=== PATIENT | female | born 1950 | race Two or more races ===

== ENCOUNTER 2020-03-14 10:00 | Inpatient (IN) | payer MEDICARE, OTHER ==
--- NOTE | 2020-03-14 10:59 | PDOC ---
History of Present Illness - General Chief Complaint: Muscle Cramping Stated Complaint: RT ARM/BACK PAIN Time Seen by Provider: 03/14/20 10:43 Past History - Medical History Allergies/Adverse Reactions: Allergies Allergy/AdvReac Type Severity Reaction Status Date / Time No Known Allergies Allergy Verified 03/14/20 10:03 Home Medications: Ambulatory Orders Labetalol HCl [Normodyne -] 200 mg PO ASDIR 03/14/20 COPD: No HTN: Yes - Psycho-Social/Smoking History Smoking History: Never smoked - Substance Abuse Hx (Audit-C & DAST Scrn) How often the patient has a drink containing alcohol: Never Score: In Men: 4 or > Positive; In Women: 3 or > Positive: 0 Screen Result (Pos requires Nsg. Audit-10AR): Negative In the last yr the pt used illegal drug/Rx for NonMed reason: No Score: Yes response is considered Positive: 0 Screen Result (Positive result requires Nsg. DAST-10): Negative *Physical Exam - Vital Signs Last Vital Signs Temp Pulse Resp BP Pulse Ox 98.1 F 69 18 138/78 99 03/14/20 10:05 03/14/20 10:05 03/14/20 10:05 03/14/20 10:05 03/14/20 10:05 ED Treatment Course - LABORATORY CBC & Chemistry Diagram: 03/15/20 05:50 03/15/20 05:50 - RADIOLOGY Radiology Studies Ordered: Category Date Time Status CHEST X-RAY PORTABLE* [RAD] Stat Radiology 03/14/20 10:56 Ordered Medical Decision Making - Medical Decision Making 03/14/20 10:57 HPI: 70yo F hx HTN c/o 3weeks b/l arm cramping and tingling, constant, worse when lies down, nothing makes better, no associated sx, no trauma or heavy lifting, no weakness. Endorses months intermittent stabbing chest pain substernal nonradiating exertional associated with fatigue when walking, last chest pain 1wk ago. From [facility] 2 days ago Endorses chronic back pain, unchanged, no recent trauma ROS: Constitutional: Positive for exertional fatigue. Negative for chills, fever, diaphoresis. HENT: Negative for sore throat, rhinorrhea, congestion. Eyes: Negative for visual disturbance. Respiratory: Negative for shortness of breath, cough, and wheezing. Cardiovascular: Positive for chest pain. Negative for palpitations, and leg swelling. Gastrointestinal: Negative for abdominal pain, blood in stool, constipation, diarrhea, nausea, and vomiting. Genitourinary: Negative for dysuria, flank pain, and hematuria. Musculoskeletal: Positive for b/l arm cramping, chronic back pain. Negative for myalgias, and neck pain. Skin: Negative for rash. Neurological: Positive for tingling b/l arms. Negative for light-headedness, dizziness, vertigo, syncope, weakness, numbness and headaches. Psychiatric/Behavioral: Negative for behavioral problems and confusion. PE: Gen: Alert, NAD, comfortable-appearing. HEENT: PERRL, EOMI, MMM, NCAT. No conjunctival pallor. Sclera are non-icteric. Oropharynx is clear. CV: Regular rate and rhythm. No murmurs, rubs, or gallops. PULM: No resp distress. CTAB, no wheezes, rales, or rhonchi. ABD: soft, NT/ND, no rebound tenderness or guarding, no CVA tenderness. BACK: No TTP of c/t/l-spine. No step-offs or deformities. MSK: No bony deformities. 2+ pulses in all extremities. NEURO: AAOx3. PERRL. CN 2-12 intact. 5/5 strength in all extremities. Sensation to light touch intact in all extremities. No pronator drift. No dysmetria. No dysdiadochokinesia. No abnormal nystagmus. No skew deviation. Normal gait. EXTREMITIES: No cyanosis. No clubbing. No edema. No calf tenderness. UEs: no TTP along long bones, full AROM, no soft tissue or fei abnormalities. PSYCH: Normal mood and thought pattern. SKIN: Warm and dry. Normal capillary refill. No rashes. No jaundice. MDM: 70yo F hx HTN with 3weeks b/l arm cramping and tingling. Hemodynamically stable, afebrile, neurologically intact. Ddx: metabolic derangement, MSK, ACS/NJ, arrhythmia, CHF, PNA, thyroid p athology, infection, metabolic derangement, anemia -EKG -CXR -CBC,CMP,Mg,Phos,Cardiac profile,BNP,Lipase,TSH,UA/UC -Aspirin -Dispo: pending workup and reassessment, likely d/c home EKG reviewed: normal sinus rhythm, 64bpm, normal axis, normal intervals, no e/o acute ischemia CXR reviewed: No acute pathology Labs reviewed. Notable for UTI -Ceftriaxone, f/u culture -Admit for UTI, and r/o ACS Admitted to Dr Stephens Discharge - Discharge Information Problems reviewed: Yes Clinical Impression/Diagnosis: UTI (urinary tract infection) Chest pain Qualifiers: Chest pain type: other chest pain Qualified Code(s): R07.89 - Other chest pain Condition: Stable - Admission Yes - Follow up/Referral - Patient Discharge Instructions - Post Discharge Activity
[2020-03-14 11:26] LABS: BASO % 0.5 % (0-2.0); EOS % 3.2 % (0-4.5); HEMATOCRIT 38.8 % (32.4-45.2); HEMOGLOBIN 12.5 GM/dL (10.7-15.3); LYMPH % 22.1 % (8-40); MCH 29.8 pg (25.7-33.7); MCHC 32.2 g/dl (32.0-36.0); MEAN CELL VOLUME 92.4 fl (80-96); MEAN PLT VOLUME 10.8 fl (7.5-11.1); MONO % 9.8 % (3.8-10.2); NEUT % 64.4 % (42.8-82.8); PLATELET COUNT 154 K/MM3 (134-434); RDW 15.3 % (11.6-15.6); WHITE BLOOD COUNT 6.1 K/mm3 (4.0-10.0)
[2020-03-14 11:33] LABS: PROTHROMBIN TIME (PATIENT) 11.8 SEC (9.7-13.0)
--- NOTE | 2020-03-14 11:33 | PDOC ---
Documentation entered by Dora Pena SCRIBE, acting as scribe for Erendira Loo MD. Erendira Loo MD: This documentation has been prepared by the Jean gibson Brenda, SCRIBE, under my direction and personally reviewed by me in its entirety. I confirm that the documentation accurately reflects all work, treatment, procedures, and medical decision making performed by me. Attending Attestation - Resident Resident Name: [email or web address] - ED Attending Attestation I have performed the following: I have examined & evaluated the patient, The case was reviewed & discussed with the resident, I agree w/resident's findings & plan, Exceptions are as noted - HPI HPI: 03/14/20 11:36 70yo F hx HTN c/o 3weeks b/l arm cramping and tingling, worse in right arm Endorses months intermittent stabbing chest pain substernal nonradiating exertional associated with fatigue when walking From [facility] 2 days ago Endorses chronic back pain, no trauma also has generalized weakness 03/14/20 12:44 03/14/20 15:39 - Physicial Exam PE: 03/14/20 11:36 Agree with the resident's HPI and PE as documented in the electronic medical record. NAD, well appearing, EOMI, PERRL, nl conjunctiva, anicteric; neck supple. lungs clear, RRR, no murmur, abdomen soft nontender. no rebound, guarding. Back nontender. RASMUSSEN x4, no focal neuro deficits. No peripheral edema. normal color for ethnicity, WWP. 5/5 group director and prox/distal strength in all extremities SILT speech clear. obese abdomen 03/14/20 12:44 03/14/20 12:45 - Medical Decision Making 03/14/20 11:36 Vital Signs Temp Pulse Resp BP Pulse Ox 98.1 F 69 18 138/78 99 03/14/20 10:05 03/14/20 10:05 03/14/20 10:05 03/14/20 10:05 03/14/20 10:05 DDx chest pain: ACS, coronary vasospasm, NSTEMI, arrhythmia, unstable angina, PE, dissection, PUD, esophageal spasm, GERD, gastritis, costochondritis, pneumonia, pleurisy, pericarditis/myocarditis. dehydration, electrolyte/metabolic derangements. Considered but clinically doubt based on HPI and PE: Low suspicion for pulmonary embolism or dissection. vitals wnl. reassuring Interpreted by ED Physician: CXR: no acute abnormality: no infiltrates, bones appear intact and structures normal alignment, cardiac silhouette within normal limits. no free air under diaphragm, no pneumothorax. EKG normal sinus rhythm, no interval abnormalities, narrow QRS, ST and T wave segments and morphology normal. Nonspecific T wave abnormalities, Chest pain HEART score 4 which denotes Moderate risk and probability for ACS, risk of 14-16% of MACE at 4-6 wks Given risk factors including comorbidities, gender labs and lytes wnl neg trop x1 reassuring UA with UTI. treat with ceftriaxone, f/u culture. admitting to Dr Stephens Plan for admit UTI/chest pain, r/o ACS given her chest pain, to r/o ischemia, serial trops and EKG/tele monitoring. ASA administered, pain controlled, discussion with patient and family at bedside, made aware of impression and plan, questions answered. 03/14/20 12:44 03/14/20 12:48 03/14/20 15:39 Heart Score/ECG Review - History History: Slightly suspicious - Electrocardiogram EKG: Non specific repolarization disturbance - Age Age: >/= 65 - Risk Factors Risk Factors Heart Score: Yes Hx Hypertension, Yes Hx Obesity Based on the list above the patient has:: 1-2 risk factors - Troponin Troponin: </= normal limit - Score Heart Score - Total: 4 #1 ECG reviewed & interpreted by me at: 10:40 General ECG Interpretation: Sinus Rhythm, Normal Rate, Normal Intervals 03/14/20 11:32 EKG normal sinus rhythm 64 bpm, no interval abnormalities, narrow QRS, ST and T wave segments and morphology normal. Nonspecific T wave abnormalities in precordial leads, TWI in III, AVF Discharge - Discharge Information Problems reviewed: Yes Clinical Impression/Diagnosis: Chest pain, UTI (urinary tract infection) Condition: Stable - Admission Yes - Follow up/Referral - Patient Discharge Instructions - Post Discharge Activity
[2020-03-14 11:35] LABS: ACTIVATED PTT 29.5 SECONDS (25.2-36.5)
[2020-03-14 12:01] LABS: ALBUMIN 3.5 g/dl (3.4-5.0); ALK PHOS 69 U/L (45-117); ANION GAP 4 MMOL/L (8-16); BILIRUBIN,TOTAL 0.3 mg/dL (0.2-1); BLOOD UREA NITROGEN 15.3 mg/dL (7-18); CALCIUM 9.3 mg/dL (8.5-10.1); CHLORIDE 110 mmol/L (98-107); CO2 31 mmol/L (21-32); CREATININE 0.9 mg/dL (0.55-1.3); GLUCOSE,RANDOM 85 mg/dL (74-106); LIPASE 149 U/L (73-393); MAGNESIUM 2.2 mg/dL (1.8-2.4); N-TERMINAL BNP 179.2 pg/ml (5-125); PHOSPHOROUS 3.1 mg/dL (2.5-4.9); POTASSIUM 4.3 mmol/L (3.5-5.1); SGOT/AST 12 U/L (15-37); SGPT/ALT 21 U/L (13-61); SODIUM 144 mmol/L (136-145)
[2020-03-14 12:19] LABS: EPI CELLS 17 /uL (0-25.1); HYALINE CASTS 1 /uL (0-3.1); PH,URINE 5.5 (5.0-8.0); URINE APPEARANCE CLOUDY; URINE BACTERIA >9,000 /uL (0-1359); URINE BILIRUBIN NEGATIVE (NEGATIVE); URINE COLOR YELLOW; URINE GLUCOSE (UA) NEGATIVE (NEGATIVE); URINE KETONE NEGATIVE (NEGATIVE); URINE LEUK ESTERASE NEGATIVE (NEGATIVE); URINE NITRITE POSITIVE (NEGATIVE); URINE PROTEIN NEGATIVE (NEGATIVE); URINE RBC 4 /uL (0-23.9); URINE UROBILINOGEN 0.2 mg/dL (0.2-1.0); URINE WBC 21 /uL (0-25.8)
[2020-03-14] MEDS ORDERED: ASPIRIN 81 MG CHEWABLE TABLETS PO ONE (12:45)
[2020-03-14] MEDS ORDERED: CEFTRIAXONE 1 GM in DEXTROSE 5%-WATER - 100 ML IVPB ONE (12:45)
[2020-03-14] MEDS ORDERED: SODIUM CHLORIDE 0.9% 500 ML INFUS.BAG IV ONE (12:48)
[2020-03-14] MEDS ORDERED: ASPIRIN 81 MG CHEWABLE TABLETS ONE (12:56)
[2020-03-14] MEDS ORDERED: CEFTRIAXONE 1 GM/50 ML BAG ONE (12:56)
--- NOTE | 2020-03-14 14:06 | HP ---
CHIEF COMPLAINT: PCP: none HISTORY OF PRESENT ILLNESS: 70 y.o female with htn (but pt reports non compliant with meds), obesity presents with wekks and months of back pain, arm paresthesias, leg pain and chest pain. Daughter reports the pain being worse this am bringing her to the ED for further eval. She also just returned from [facility] 2 days ago -- goes back and forth to her home in [place] [facility] [facility] yearly. Pt denies any pleuritic pain, no sob, no nausea or vomiting ER course was notable for: (1) body pain (2)hypertension (3) Recent Travel: yes returned from [facility] [facility] 2 days ago PAST MEDICAL HISTORY: as above PAST SURGICAL HISTORY: denies Social History: Smoking: denies Alcohol: denies Drugs: denies Allergies No Known Allergies Allergy (Verified 03/14/20 10:03) HOME MEDICATIONS: Home Medications Medication Instructions Recorded Labetalol HCl [Normodyne -] 200 mg PO ASDIR 03/14/20 REVIEW OF SYSTEMS CONSTITUTIONAL: Absent: fever, chills, diaphoresis, generalized weakness, malaise, loss of appetite, weight change generalized body pain/aches, back pain, neck pain HEENT: Absent: rhinorrhea, nasal congestion, throat pain, throat swelling, difficulty swallowing, mouth swelling, ear pain, eye pain, visual changes CARDIOVASCULAR: pos chest pain, syncope, palpitations, irregular heart rate, lightheadedness, peripheral edema RESPIRATORY: Absent: cough, shortness of breath, dyspnea with exertion, orthopnea, wheezing, stridor, hemoptysis GASTROINTESTINAL: Absent: abdominal pain, abdominal distension, nausea, vomiting, diarrhea, constipation, melena, hematochezia GENITOURINARY: Absent: dysuria, frequency, urgency, hesitancy, hematuria, flank pain, genital pain MUSCULOSKELETAL: Absent: myalgia, arthralgia, joint swelling, back pain, neck pain SKIN: Absent: rash, itching, pallor HEMATOLOGIC/IMMUNOLOGIC: Absent: easy bleeding, easy bruising, lymphadenopathy, frequent infections ENDOCRINE: Absent: unexplained weight gain, unexplained weight loss, heat intolerance, cold intolerance NEUROLOGIC: Absent: headache, focal weakness or paresthesias, dizziness, unsteady gait, seizure, mental status changes, bladder or bowel incontinence PSYCHIATRIC: Absent: anxiety, depression, suicidal or homicidal ideation, hallucinations. PHYSICAL EXAMINATION Vital Signs - 24 hr 03/14/20 03/14/20 03/14/20 10:05 13:05 13:14 Temperature 98.1 F Pulse Rate 69 Pulse Rate [ 64 Apical] Respiratory 18 20 Rate Blood Pressure 138/78 Blood Pressure 173/85 H [Right Arm] O2 Sat by Pulse 99 100 99 Oximetry (%) GENERAL: Awake, alert, and fully oriented, in no acute distress. HEAD: Normal with no signs of trauma. EYES: extraocular movements intact, sclera anicteric, conjunctiva clear. No lid lag. EARS, NOSE, THROAT: Ears normal, nares patent, oropharynx clear without exudates. Moist mucous membranes. NECK: Normal range of motion, supple LUNGS: Breath sounds equal, clear to auscultation bilaterally. No wheezes, and no crackles. No accessory muscle use. HEART: Regular rate and rhythm, normal S1 and S2 without murmur, rub or gallop. ABDOMEN: Soft, nontender, not distended, normoactive bowel sounds, no guarding, no rebound, no masses. No hepatomegaly or splenomegaly. obese BACK: pos thoracic back tenderness MUSCULOSKELETAL: Normal range of motion at all joints. No bony deformities or tenderness. No CVA tenderness. UPPER EXTREMITIES: 2+ pulses, warm, well-perfused. No cyanosis. No clubbing. No peripheral edema. LOWER EXTREMITIES: 2+ pulses, warm, well-perfused. No calf tenderness. No peripheral edema. NEUROLOGICAL: Cranial nerves II-XII intact. Normal speech. Normal gait. PSYCHIATRIC: Cooperative. Good eye contact. Appropriate mood and affect. SKIN: Warm, dry, normal turgor, no rashes or lesions noted, normal capillary refill. Laboratory Results - last 24 hr 03/14/20 03/14/20 03/14/20 11:00 11:00 11:00 WBC 6.1 RBC 4.20 Hgb 12.5 Hct 38.8 MCV 92.4 MCH 29.8 MCHC 32.2 RDW 15.3 Plt Count 154 MPV 10.8 Absolute Neuts (auto) 3.9 Neutrophils % 64.4 Lymphocytes % 22.1 Monocytes % 9.8 Eosinophils % 3.2 Basophils % 0.5 Nucleated RBC % 0 PT with INR 11.80 INR 1.00 PTT (Actin FS) 29.5 Sodium 144 Potassium 4.3 Chloride 110 H Carbon Dioxide 31 Anion Gap 4 L BUN 15.3 Creatinine 0.9 Est GFR (CKD-EPI)AfAm 75.08 Est GFR (CKD-EPI)NonAf 64.78 Random Glucose 85 Calcium 9.3 Phosphorus 3.1 Magnesium 2.2 Total Bilirubin 0.3 AST 12 L ALT 21 Alkaline Phosphatase 69 Creatine Kinase 168 Creatine Kinase Index 0.6 CK-MB (CK-2) 1.1 Troponin I < 0.02 B-Natriuretic Peptide 179.2 H Total Protein 7.0 Albumin 3.5 Lipase 149 TSH 1.25 Urine Color Urine Appearance Urine pH Ur Specific Cerulean Urine Protein Urine Glucose (UA) Urine Ketones Urine Blood Urine Nitrite Urine Bilirubin Urine Urobilinogen Ur Leukocyte Esterase Urine WBC (Auto) Urine RBC (Auto) Urine Casts (Auto) U Epithel Cells (Auto) Urine Bacteria (Auto) 03/14/20 11:40 WBC RBC Hgb Hct MCV MCH MCHC RDW Plt Count MPV Absolute Neuts (auto) Neutrophils % Lymphocytes % Monocytes % Eosinophils % Basophils % Nucleated RBC % PT with INR INR PTT (Actin FS) Sodium Potassium Chloride Carbon Dioxide Anion Gap BUN Creatinine Est GFR (CKD-EPI)AfAm Est GFR (CKD-EPI)NonAf Random Glucose Calcium Phosphorus Magnesium Total Bilirubin AST ALT Alkaline Phosphatase Creatine Kinase Creatine Kinase Index CK-MB (CK-2) Troponin I B-Natriuretic Peptide Total Protein Albumin Lipase TSH Urine Color Yellow Urine Appearance Cloudy Urine pH 5.5 Ur Specific Cerulean 1.021 Urine Protein Negative Urine Glucose (UA) Negative Urine Ketones Negative Urine Blood Negative Urine Nitrite Positive H Urine Bilirubin Negative Urine Urobilinogen 0.2 Ur Leukocyte Esterase Negative Urine WBC (Auto) 21 Urine RBC (Auto) 4 Urine Casts (Auto) 1 U Epithel Cells (Auto) 17 Urine Bacteria (Auto) >9,000 ekg: unable to locate in the ed, nsr per ed physician cxr: per my interpretation : left costraphrenic angle blunting, no infiltrates noted ASSESSMENT/PLAN: 70 y/o female with the above med hx admitted with chest pain, body pain *chest and body aches -- ? viral infection covid being rule out, recent travel admit to tele rule out acs with enzymes first set neg cardio eval check magnesium, b12, hba1c moving all extremities, arthritic pain? *uti - cont rocephin daily urine culture pending *htn - increased labetalol to twice daily and added acr inh for better bp control *dvt prophy - sq heparin Family Medical History Family History: Denies Visit type - Medication Review Med list reviewed for High Risk Meds patients 65 and older: Yes - Emergency Visit Emergency Visit: Yes ED Registration Date: 03/14/20 Care time: The patient presented to the Emergency Department on the above date and was hospitalized for further evaluation of their emergent condition. - New Patient This patient is new to me today: Yes Date on this admission: 03/14/20 - Critical Care Critical Care patient: No
[2020-03-14] MEDS ORDERED: ACETAMINOPHEN 325 MG TABLET (FP) PO PRN (14:50)
--- NOTE | 2020-03-14 16:58 | CON.CARD ---
Consult Consult Specialty:: Cardiology Referred by:: Hospitalist Medicine Reason for Consultation:: Chest pain, HTN - History of Present Illness Chief Complaint: Chest pain History of Present Illness: 70yo F hx HTN noncompliant with meds, presents for 3 weeks of right arm cramping, hand weakness, months of intermittent stabbing chest pain substernal nonradiating non-exertional, chronic [place] [facility], denies n ear or true syncope, palpitations, orthopnea, PND or LE edema. - History Source History Provided By: Patient Limitations to Obtaining History: No Limitations - Past Medical History Cardio/Vascular: Yes: HTN - Smoking History Smoking history: Never smoked Home Medications - Allergies Allergies/Adverse Reactions: Allergies Allergy/AdvReac Type Severity Reaction Status Date / Time No Known Allergies Allergy Verified 03/14/20 10:03 - Home Medications Home Medications: Ambulatory Orders Labetalol HCl [Normodyne -] 200 mg PO ASDIR 03/14/20 Review of Systems - Review of Systems Cardiovascular: reports: Chest Pain Respiratory: reports: SOB on Exertion Neurological: reports: Weakness Vital Signs: Vital Signs Temperature 98.1 F 03/14/20 10:05 Pulse Rate 61 03/14/20 15:45 Respiratory Rate 20 03/14/20 15:45 Blood Pressure 159/86 03/14/20 15:45 O2 Sat by Pulse Oximetry (%) 97 03/14/20 15:45 Constitutional: Yes: No Distress, Calm Neck: Yes: Supple Respiratory: Yes: Regular, CTA Bilaterally Gastrointestinal: Yes: Normal Bowel Sounds, Soft, Abdomen, Obese Cardiovascular: Yes: Regular Rate and Rhythm JVD: No Carotid Bruit: No Heart Sounds: Yes: S1, S2 Edema: No Neurological: Yes: 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) - Other Data Labs, Other Data: CBC, BMP 03/14/20 11:00 03/14/20 11:00 INR, PTT INR 1.00 (0.83-1.09) 03/14/20 11:00 Troponin, BNP 03/14/20 11:00 Troponin I < 0.02 B-Natriuretic Peptide 179.2 H Troponin, BNP 03/14/20 11:00 Troponin I < 0.02 B-Natriuretic Peptide 179.2 H NSR @ 64 LVH with repol abnl Ejection Fraction %: LVEF > or = 40 % Imaging - Results Chest X-ray: Image Reviewed (NAD, no effusion) Cat Scan: Pending Problem List - Problems (1) Hypertensive heart disease Code(s): I11.9 - HYPERTENSIVE HEART DISEASE WITHOUT HEART FAILURE Qualifiers: Heart failure presence: without heart failure Qualified Code(s): I11.9 - Hypertensive heart disease without heart failure (2) Dyspnea on exertion Code(s): R06.00 - DYSPNEA, UNSPECIFIED (3) Chest pain Code(s): R07.9 - CHEST PAIN, UNSPECIFIED Qualifiers: Chest pain type: other chest pain Qualified Code(s): R07.89 - Other chest pain; R07.8 - Other chest pain Assessment/Plan 1. Hypertensive heart disease w/o failure 2. Atypical chest pain 3. Chronic DE r/o structural heart disease 4. Right hand weakness r/o CVA vs peripheral neuropathy 5. UTI 6. R/o COVID 19 P:1. Resume labetolol 200 bid and agree with add ASA 81 qd and vasotec 5 qd with uptitration as tolerated 2. Ruling out for ME, consider HCT 3. Further testing including TTE and stress testing may be performed as outpatient 4. Empiric abx pending C&S 5. Thank you for consultative opportunity
[2020-03-14] MEDS: ENALAPRIL MALEATE 5 MG TABLET (FP) PO SCH (17:54)
[2020-03-14 18:17] VITALS: BMI 33.9
[2020-03-14] MEDS: LABETALOL HCL 200 MG TABLET (FP) PO SCH (21:01)
[2020-03-14] MEDS: HEPARIN NA (PORCINE) 5,000 UNITS/ML 1ML VIAL SQ SCH (21:01)
[2020-03-15 06:57] LABS: BASO % 0.7 % (0-2.0); EOS % 4.4 % (0-4.5); HEMATOCRIT 36.8 % (32.4-45.2); LYMPH % 35.8 % (8-40); MCH 29.4 pg (25.7-33.7); MCHC 32.6 g/dl (32.0-36.0); MEAN CELL VOLUME 90.1 fl (80-96); MEAN PLT VOLUME 10.4 fl (7.5-11.1); MONO % 11.6 % (3.8-10.2); NEUT % 47.5 % (42.8-82.8); PLATELET COUNT 144 K/MM3 (134-434); RBC 4.09 M/mm3 (3.60-5.2); RDW 14.5 % (11.6-15.6); WHITE BLOOD COUNT 4.8 K/mm3 (4.0-10.0)
[2020-03-15 07:36] LABS: BLOOD UREA NITROGEN 14.3 mg/dL (7-18); CALCIUM 8.7 mg/dL (8.5-10.1); CREATININE 0.8 mg/dL (0.55-1.3); MAGNESIUM 2.1 mg/dL (1.8-2.4); PHOSPHOROUS 3.3 mg/dL (2.5-4.9); POTASSIUM 3.8 mmol/L (3.5-5.1)
[2020-03-15] MEDS ORDERED: DEXTROSE 5%-WATER - 50 ML IVPB ONE (08:22)
[2020-03-15] MEDS ORDERED: cefTRIAXone SODIUM 1 GM VIAL ONE (08:22)
[2020-03-15] MEDS: ENALAPRIL MALEATE 5 MG TABLET (FP) PO SCH (09:04)
[2020-03-15] MEDS: ASPIRIN COATED 81 MG TABLET.EC PO SCH (09:04)
[2020-03-15] MEDS: CEFTRIAXONE 1 GM in DEXTROSE 5%-WATER - 50 ML IVPB SCH (09:04)
[2020-03-15] MEDS: PANTOPRAZOLE 40 MG TABLET PO SCH (09:04)
[2020-03-15] MEDS: HEPARIN NA (PORCINE) 5,000 UNITS/ML 1ML VIAL SQ SCH ×2 (09:04→21:17)
[2020-03-15] MEDS: LABETALOL HCL 200 MG TABLET (FP) PO SCH ×2 (09:04→21:17)
--- NOTE | 2020-03-15 10:38 | PN ---
Physical Exam: SUBJECTIVE: Patient seen and examined at bedside. She endorses right upper extremity cramping, and resultant weakness ongoing for the past two months. She denies any trauma or inciting features. Cramping begins at upper arm and is diffuse through her arm and her hand. She states over the past two weeks she has had increasing difficulty using utensils (for example- to peel a fruit). Has not has this evaluated by a physician previously. Denies chest pain, palpitations, or shortness of breath today. Denies subjective fevers, chills, abdominal pain, nausea, vomiting, dysuria, hematuria. OBJECTIVE: Vital Signs Period Temp Pulse Resp BP Sys/Bruno Pulse Ox Last 24 Hr 97.6 F-98.8 F 60-74 18-22 140-173/82-99 94-100 GENERAL: The patient is awake, alert, and fully oriented, in no acute distress. HEAD: Normocephalic, atraumatic. EYES: PERRL, extraocular movements intact, sclera anicteric, conjunctiva clear. ENT: Oropharynx clear, without erythema or exudates. Moist mucous membranes. NECK: Trachea midline, full range of motion. Supple without lymphadenopathy. LUNGS: Breath sounds equal, clear to auscultation bilaterally. No wheezes, no crackles. No accessory muscle use. HEART: Regular rate and rhythm. S1, S2 without murmur, rub or gallop. ABDOMEN: Soft, nondistended, nontender to light and deep palpation x4 quadrants. No rebound tenderness, no guarding. Normoactive bowel sounds x4 quadrants. No hepatosplenomegaly, no masses appreciated. EXTREMITIES: 2+ radial, dorsalis pedis pulses bilaterally. Warm, well-perfused. No lower extremity edema bilaterally. NEUROLOGICAL: Cranial nerves II through XII grossly intact. Normal speech. 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 Lower extremities strength 5/5 bilaterally. PSYCH: Normal mood, normal affect upon my encounter. SKIN: Warm, dry. Laboratory Results - last 24 hr 03/14/20 03/14/20 03/14/20 11:00 11:00 11:00 WBC 6.1 RBC 4.20 Hgb 12.5 Hct 38.8 MCV 92.4 MCH 29.8 MCHC 32.2 RDW 15.3 Plt Count 154 MPV 10.8 Absolute Neuts (auto) 3.9 Neutrophils % 64.4 Lymphocytes % 22.1 Monocytes % 9.8 Eosinophils % 3.2 Basophils % 0.5 Nucleated RBC % 0 PT with INR 11.80 INR 1.00 PTT (Actin FS) 29.5 Sodium 144 Potassium 4.3 Chloride 110 H Carbon Dioxide 31 Anion Gap 4 L BUN 15.3 Creatinine 0.9 Est GFR (CKD-EPI)AfAm 75.08 Est GFR (CKD-EPI)NonAf 64.78 Random Glucose 85 Hemoglobin A1c % Calcium 9.3 Phosphorus 3.1 Magnesium 2.2 Total Bilirubin 0.3 AST 12 L ALT 21 Alkaline Phosphatase 69 Creatine Kinase 168 Creatine Kinase Index 0.6 CK-MB (CK-2) 1.1 Troponin I < 0.02 B-Natriuretic Peptide 179.2 H Total Protein 7.0 Albumin 3.5 Triglycerides Cholesterol Total LDL Cholesterol HDL Cholesterol Lipase 149 Vitamin B12 TSH 1.25 Urine Color Urine Appearance Urine pH Ur Specific [place] Urine Protein Urine Glucose (UA) Urine Ketones Urine Blood Urine Nitrite Urine Bilirubin Urine Urobilinogen Ur Leukocyte Esterase Urine WBC (Auto) Urine RBC (Auto) Urine Casts (Auto) U Epithel Cells (Auto) Urine Bacteria (Auto) COVID-19 ([facility]) 03/14/20 03/14/20 03/14/20 11:40 12:10 15:59 WBC RBC Hgb Hct MCV MCH MCHC RDW Plt Count MPV Absolute Neuts (auto) Neutrophils % Lymphocytes % Monocytes % Eosinophils % Basophils % Nucleated RBC % PT with INR INR PTT (Actin FS) Sodium Potassium Chloride Carbon Dioxide Anion Gap BUN Creatinine Est GFR (CKD-EPI)AfAm Est GFR (CKD-EPI)NonAf Random Glucose Hemoglobin A1c % Calcium Phosphorus Magnesium Total Bilirubin AST ALT Alkaline Phosphatase Creatine Kinase 155 Creatine Kinase Index No Result Required. CK-MB (CK-2) < 1.0 Troponin I < 0.02 B-Natriuretic Peptide Total Protein Albumin Triglycerides Cholesterol Total LDL Cholesterol HDL Cholesterol Lipase Vitamin B12 TSH Urine Color Yellow Urine Appearance Cloudy Urine pH 5.5 Ur Specific [place] 1.021 Urine Protein Negative Urine Glucose (UA) Negative Urine Ketones Negative Urine Blood Negative Urine Nitrite Positive H Urine Bilirubin Negative Urine Urobilinogen 0.2 Ur Leukocyte Esterase Negative Urine WBC (Auto) 21 Urine RBC (Auto) 4 Urine Casts (Auto) 1 U Epithel Cells (Auto) 17 Urine Bacteria (Auto) >9,000 COVID-19 ([facility]) Not detected 03/15/20 03/15/20 03/15/20 00:20 05:50 05:50 WBC 4.8 RBC 4.09 Hgb 12.0 Hct 36.8 MCV 90.1 MCH 29.4 MCHC 32.6 RDW 14.5 Plt Count 144 MPV 10.4 Absolute Neuts (auto) 2.3 Neutrophils % 47.5 D Lymphocytes % 35.8 D Monocytes % 11.6 H Eosinophils % 4.4 Basophils % 0.7 Nucleated RBC % 0 PT with INR INR PTT (Actin FS) Sodium 140 Potassium 3.8 Chloride 108 H Carbon Dioxide 26 Anion Gap 7 L BUN 14.3 Creatinine 0.8 Est GFR (CKD-EPI)AfAm 86.57 Est GFR (CKD-EPI)NonAf 74.70 Random Glucose 80 Hemoglobin A1c % Calcium 8.7 Phosphorus 3.3 Magnesium 2.1 Total Bilirubin AST ALT Alkaline Phosphatase Creatine Kinase 138 Creatine Kinase Index CK-MB (CK-2) Troponin I < 0.02 B-Natriuretic Peptide Total Protein Albumin Triglycerides 87 Cholesterol 205 H Total LDL Cholesterol 129 H HDL Cholesterol 56 Lipase Vitamin B12 292 TSH 2.19 Urine Color Urine Appearance Urine pH Ur Specific [place] Urine Protein Urine Glucose (UA) Urine Ketones Urine Blood Urine Nitrite Urine Bilirubin Urine Urobilinogen Ur Leukocyte Esterase Urine WBC (Auto) Urine RBC (Auto) Urine Casts (Auto) U Epithel Cells (Auto) Urine Bacteria (Auto) COVID-19 ([facility]) 03/15/20 05:50 WBC RBC Hgb Hct MCV MCH MCHC RDW Plt Count MPV Absolute Neuts (auto) Neutrophils % Lymphocytes % Monocytes % Eosinophils % Basophils % Nucleated RBC % PT with INR INR PTT (Actin FS) Sodium Potassium Chloride Carbon Dioxide Anion Gap BUN Creatinine Est GFR (CKD-EPI)AfAm Est GFR (CKD-EPI)NonAf Random Glucose Hemoglobin A1c % 5.4 Calcium Phosphorus Magnesium Total Bilirubin AST ALT Alkaline Phosphatase Creatine Kinase Creatine Kinase Index CK-MB (CK-2) Troponin I B-Natriuretic Peptide Total Protein Albumin Triglycerides Cholesterol Total LDL Cholesterol HDL Cholesterol Lipase Vitamin B12 TSH Urine Color Urine Appearance Urine pH Ur Specific [place] Urine Protein Urine Glucose (UA) Urine Ketones Urine Blood Urine Nitrite Urine Bilirubin Urine Urobilinogen Ur Leukocyte Esterase Urine WBC (Auto) Urine RBC (Auto) Urine Casts (Auto) U Epithel Cells (Auto) Urine Bacteria (Auto) COVID-19 ([facility]) Active Medications Generic Name Dose Route Start Last Admin Trade Name Sarah PRN Reason Stop Dose Admin Acetaminophen 650 mg 03/14/20 14:50 Tylenol - PO Q4H PRN PAIN LEVEL 1-5 Aspirin 81 mg 03/15/20 10:00 03/15/20 09:04 Ecotrin - PO 81 mg DAILY [facility] Administration Enalapril Maleate 5 mg 03/14/20 15:00 03/15/20 09:04 Vasotec - PO 5 mg DAILY [facility] Administration Heparin Sodium (Porcine) 5,000 unit 03/14/20 22:00 03/15/20 09:04 Heparin - SQ 5,000 unit BID [facility] Administration Ceftriaxone Sodium 1 gm/ 50 mls @ 100 mls/hr 03/15/20 10:00 03/15/20 09:04 Dextrose IVPB 100 mls/hr DAILY [facility] Administration Protocol Labetalol HCl 200 mg 03/14/20 22:00 03/15/20 09:04 Normodyne - PO 200 mg BID [facility] Administration Pantoprazole Sodium 40 mg 03/15/20 10:00 03/15/20 09:04 Protonix - PO 40 mg DAILY [facility] Administration ASSESSMENT/PLAN: Patient is a 70 year old female with history of hypertension (non-adherent with medication regimen), presented with complaint of chest pain, and right upper extremity pain, weakness. Atypical chest pain -Currently asymptomatic. Troponin negative X3 -EKG reveals normal sinus rhythm at 64BPM, with left ventricular hypertrophy -Cardiology recommendations (Dr. Troncoso) appreciated. Further testing may be performed as outpatient. -Aspirin 81mg PO daily Right upper extremity cramping, weakness -Uncertain etiology. Has been longstanding without any prior workup. Patient endorses predominantly cramping sensation that seems to lead weakness. -Neurology recommendations (Dr. Ponce) appreciated. -Will obtain CT head, cervical spine -Begin Neurontin 100mg PO HS Hypertension -Continue Labetalol 200mg PO BID -Enalapril 5mg PO daily Urinary tract infection -UA reveals bacteruria, positive nitrites, 17 epithelial cells. -Urine culture growing preliminary lactose fermenting gram negative bacilli -Continue Ceftriaxone (day #2) -Follow final urine cultures FEN -No IV fluids indicated -Follow BMP -Sodium controlled diet Prophylaxis -Heparin 5000unis subq TID Disposition -Continue care in Telemetry floor Visit type - Emergency Visit Emergency Visit: Yes ED Registration Date: 03/14/20 Care time: The patient presented to the Emergency Department on the above date and was hospitalized for further evaluation of their emergent condition. - New Patient This patient is new to me today: Yes Date on this admission: 03/15/20 - Critical Care Critical Care patient: No - Discharge Referral Physician Referral: Guevara Kolb MD ([facility]) - Medication Review Med list reviewed for High Risk Meds patients 65 and older: Yes ATTENDING PHYSICIAN STATEMENT I saw and evaluated the patient. I reviewed the resident's note and discussed the case with the resident. I agree with the resident's findings and plan as documented. SUBJECTIVE: OBJECTIVE: ASSESSMENT AND PLAN:
--- NOTE | 2020-03-15 12:23 | PN ---
Progress Note, Physician History of Present Illness: 70yo F hx HTN noncompliant with meds, admitted for 3 weeks of right arm cramping, hand weakness, months of intermittent stabbing chest pain substernal nonradiating non-exertional, chronic ED climbing [place] in [facility], denies near or true syncope, palpitations, orthopnea, PND or LE edema. She currently denies chest pain, dyspnea at rest or orthopnea. - Current Medication List Current Medications: Active Medications Acetaminophen (Tylenol -) 650 mg PO Q4H PRN PRN Reason: PAIN LEVEL 1-5 Aspirin (Ecotrin -) 81 mg PO DAILY [facility] Last Admin: 03/15/20 09:04 Dose: 81 mg Documented by: Enalapril Maleate (Vasotec -) 5 mg PO DAILY [facility] Last Admin: 03/15/20 09:04 Dose: 5 mg Documented by: Heparin Sodium (Porcine) (Heparin -) 5,000 unit SQ BID [facility] Last Admin: 03/15/20 09:04 Dose: 5,000 unit Documented by: Ceftriaxone Sodium 1 gm/ (Dextrose) 50 mls @ 100 mls/hr IVPB DAILY [facility]; Protocol Last Admin: 03/15/20 09:04 Dose: 100 mls/hr Documented by: Labetalol HCl (Normodyne -) 200 mg PO BID [facility] Last Admin: 03/15/20 09:04 Dose: 200 mg Documented by: Pantoprazole Sodium (Protonix -) 40 mg PO DAILY [facility] Last Admin: 03/15/20 09:04 Dose: 40 mg Documented by: - Objective Vital Signs: Vital Signs Temperature 97.8 F 03/15/20 09:00 Pulse Rate 53 L 03/15/20 09:00 Respiratory Rate 22 H 03/15/20 09:00 Blood Pressure 158/82 03/15/20 09:00 O2 Sat by Pulse Oximetry (%) 96 03/15/20 09:00 Constitutional: Yes: No Distress, Calm Neck: Yes: Supple Cardiovascular: Yes: Regular Rate and Rhythm Respiratory: Yes: Regular, CTA Bilaterally Gastrointestinal: Yes: Normal Bowel Sounds, Soft, Abdomen, Obese Edema: No Labs: CBC, BMP 03/15/20 05:50 03/15/20 05:50 INR, PTT INR 1.00 (0.83-1.09) 03/14/20 11:00 - ....Imaging EKG: Report Reviewed (Tele: NSR) Problem List - Problems (1) Hypertensive heart disease Code(s): I11.9 - HYPERTENSIVE HEART DISEASE WITHOUT HEART FAILURE Qualifiers: Heart failure presence: without heart failure Qualified Code(s): I11.9 - Hypertensive heart disease without heart failure (2) Dyspnea on exertion Code(s): R06.00 - DYSPNEA, UNSPECIFIED (3) Chest pain Code(s): R07.9 - CHEST PAIN, UNSPECIFIED Qualifiers: Chest pain type: other chest pain Qualified Code(s): R07.89 - Other chest pain; R07.8 - Other chest pain Assessment/Plan 1. Hypertensive heart disease w/o failure 2. Atypical chest pain 3. Chronic DE r/o structural heart disease 4. Right hand weakness r/o CVA vs peripheral neuropathy 5. UTI 6. COVID 19 negative P:1. Continue labetolol 200 bid, ASA 81 qd and vasotec 5 qd with uptitration as tolerated 2. Ruled out for RI, consider HCT 3. Further testing including TTE and stress testing may be performed as outpatient 4. Empiric abx pending C&S
--- NOTE | 2020-03-15 13:49 | CON.NEURO ---
Consult Consult Specialty:: [facility] neurology Referred by:: PCP Reason for Consultation:: Weakness - History of Present Illness History of Present Illness: 70 years old woman with PMH CAD OA HTN Obesity Came in with over one week history of arm pain and weakness Patient with chronic back and neck pain Daughter brought catracho patient in No fall tested neg for COVID No fever - History Source History Provided By: Patient, Family Member, Medical Record Limitations to Obtaining History: No Limitations - Past Medical History Cardio/Vascular: Yes: HTN - Smoking History Smoking history: Never smoked Home Medications - Allergies Allergies/Adverse Reactions: Allergies Allergy/AdvReac Type Severity Reaction Status Date / Time No Known Allergies Allergy Verified 03/14/20 10:03 - Home Medications Home Medications: Ambulatory Orders Labetalol HCl [Normodyne -] 200 mg PO ASDIR 03/14/20 Family Medical History Family History: Unremarkable Review of Systems - Review of Systems Musculoskeletal: reports: Decreased ROM Neurological: reports: Numbness, Parasthesia Physical Exam-Neuro Vital Signs: Vital Signs Temperature 97.8 F 03/15/20 09:00 Pulse Rate 53 L 03/15/20 09:00 Respiratory Rate 22 H 03/15/20 09:00 Blood Pressure 158/82 03/15/20 09:00 O2 Sat by Pulse Oximetry (%) 96 03/15/20 09:00 Labs: CBC, BMP 03/15/20 05:50 03/15/20 05:50 INR, PTT INR 1.00 (0.83-1.09) 03/14/20 11:00 - Neuro Exam Level Of Consciousness: Yes: Oriented to Person, Oriented to Place, Oriented to Time Eyes: Yes: PERRLA Speech: WNL Dominant Hand: Right Cranial Nerves II-XII Intact: Yes Gag: Present DTR's: 1+ Left Bicep, 1+ Right Bicep, 1+ Left Tricep, 1+ Right Tricep Response to light touch: Normal Response to pain prick: Normal Response to temperature: Normal Response to vibration: Normal Motor Strength: 3/5: Left Arm, Right Arm, Left Leg, Right Leg Gait: Deferred Problem List - Problems (1) Cervical radicular pain Code(s): M54.12 - RADICULOPATHY, CERVICAL REGION Assessment/Plan 1. No evidence of CVA 2. CT head and C spine 3. Neurontin 100 mg po qhs 4. Weight loss advised Can benefit from NCV as OP Thanks Cynthia Ponce MD
--- NOTE | 2020-03-15 15:38 | PN ---
Teaching Attending Note Name of Resident: Baljinder Peace ATTENDING PHYSICIAN STATEMENT I saw and evaluated the patient. I reviewed the resident's note and discussed the case with the resident. I agree with the resident's findings and plan as documented. SUBJECTIVE: OBJECTIVE: ASSESSMENT AND PLAN: Patient was seen and examined Patient is a 70 year old female with history of hypertension (non-adherent with medication regimen), presented with complaint of chest pain, and right upper extremity pain, weakness. Atypical chest pain -Currently asymptomatic. Troponin negative X3 -EKG reveals normal sinus rhythm at 64BPM, with left ventricular hypertrophy -Cardiology recommendations (Dr. Troncoso) appreciated. Further testing may be performed as outpatient. -Aspirin 81mg PO daily Right upper extremity cramping, weakness -? outpatient neurology work-up Hypertension -Continue Labetalol 200mg PO BID -Enalapril 5mg PO daily Urinary tract infection - On Ceftriaxone -Follow final urine cultures
[2020-03-15] MEDS: GABAPENTIN 100 MG CAPSULE PO SCH (21:09)
[2020-03-16 07:52] LABS: HEMATOCRIT 37.8 % (32.4-45.2); HEMOGLOBIN 12.3 GM/dL (10.7-15.3); MCH 29.5 pg (25.7-33.7); MCHC 32.6 g/dl (32.0-36.0); MEAN CELL VOLUME 90.6 fl (80-96); MEAN PLT VOLUME 10.3 fl (7.5-11.1); PLATELET COUNT 145 K/MM3 (134-434); RBC 4.17 M/mm3 (3.60-5.2); RDW 14.7 % (11.6-15.6)
[2020-03-16 08:13] LABS: BLOOD UREA NITROGEN 14.3 mg/dL (7-18); CALCIUM 9.1 mg/dL (8.5-10.1); CREATININE 0.8 mg/dL (0.55-1.3); POTASSIUM 4.1 mmol/L (3.5-5.1)
[2020-03-16] MEDS ORDERED: cefTRIAXone SODIUM 1 GM VIAL ONE (08:35)
[2020-03-16] MEDS ORDERED: DEXTROSE 5%-WATER - 50 ML IVPB ONE (08:35)
--- NOTE | 2020-03-16 09:19 | PN ---
Progress Note, Physician History of Present Illness: patient evaluated this morning still with the right leg more than the right arm pain. Patient feels much comfortable patient denies any headache CAT scan is done results are pending - Current Medication List Current Medications: Active Medications Acetaminophen (Tylenol -) 650 mg PO Q4H PRN PRN Reason: PAIN LEVEL 1-5 Aspirin (Ecotrin -) 81 mg PO DAILY [facility] Last Admin: 03/15/20 09:04 Dose: 81 mg Documented by: Enalapril Maleate (Vasotec -) 5 mg PO DAILY [facility] Last Admin: 03/15/20 09:04 Dose: 5 mg Documented by: Gabapentin (Neurontin -) 100 mg PO DAILY [facility] Last Admin: 03/15/20 21:09 Dose: 100 mg Documented by: Heparin Sodium (Porcine) (Heparin -) 5,000 unit SQ BID [facility] Last Admin: 03/15/20 21:17 Dose: 5,000 unit Documented by: Ceftriaxone Sodium 1 gm/ (Dextrose) 50 mls @ 100 mls/hr IVPB DAILY [facility]; Protocol Last Admin: 03/15/20 09:04 Dose: 100 mls/hr Documented by: Labetalol HCl (Normodyne -) 200 mg PO BID [facility] Last Admin: 03/15/20 21:17 Dose: 200 mg Documented by: Pantoprazole Sodium (Protonix -) 40 mg PO DAILY [facility] Last Admin: 03/15/20 09:04 Dose: 40 mg Documented by: - Objective Vital Signs: Vital Signs Temperature 98.8 F 03/16/20 05:34 Pulse Rate 65 03/16/20 05:34 Respiratory Rate 18 03/16/20 05:34 Blood Pressure 140/76 03/16/20 05:34 O2 Sat by Pulse Oximetry (%) 96 03/16/20 05:34 Constitutional: Yes: Well Nourished Eyes: Yes: WNL HENT: Yes: WNL Neurological: Yes: WNL, Alert, Babinski positive, Cran Nerves II-XII Intact Labs: CBC, BMP 03/16/20 06:50 03/16/20 06:50 INR, PTT INR 1.00 (0.83-1.09) 03/14/20 11:00 Problem List - Problems (1) Cervical radicular pain Assessment/Plan: 1. Out of bed to chair. 2. We'll take a look at the CAT scan results. 3. Gabapentin Code(s): M54.12 - RADICULOPATHY, CERVICAL REGION
[2020-03-16] MEDS: GABAPENTIN 100 MG CAPSULE PO SCH (09:21)
[2020-03-16] MEDS: LABETALOL HCL 200 MG TABLET (FP) PO SCH (09:21)
[2020-03-16] MEDS: ASPIRIN COATED 81 MG TABLET.EC PO SCH (09:21)
[2020-03-16] MEDS: HEPARIN NA (PORCINE) 5,000 UNITS/ML 1ML VIAL SQ SCH (09:21)
[2020-03-16] MEDS: PANTOPRAZOLE 40 MG TABLET PO SCH (09:21)
[2020-03-16] MEDS: CEFTRIAXONE 1 GM in DEXTROSE 5%-WATER - 50 ML IVPB SCH (09:21)
[2020-03-16] MEDS: ENALAPRIL MALEATE 5 MG TABLET (FP) PO SCH (09:21)
--- NOTE | 2020-03-16 09:53 | PN ---
Progress Note, Physician Chief Complaint: Events noted Not in distress History of Present Illness: Patient was seen and examined. Awake and alert. Chart was reviewed Denies chest pain, SOB or palpitations - Current Medication List Current Medications: Active Medications Acetaminophen (Tylenol -) 650 mg PO Q4H PRN PRN Reason: PAIN LEVEL 1-5 Aspirin (Ecotrin -) 81 mg PO DAILY [facility] Last Admin: 03/16/20 09:21 Dose: 81 mg Documented by: Enalapril Maleate (Vasotec -) 5 mg PO DAILY [facility] Last Admin: 03/16/20 09:21 Dose: 5 mg Documented by: Gabapentin (Neurontin -) 100 mg PO DAILY [facility] Last Admin: 03/16/20 09:21 Dose: 100 mg Documented by: Heparin Sodium (Porcine) (Heparin -) 5,000 unit SQ BID [facility] Last Admin: 03/16/20 09:21 Dose: 5,000 unit Documented by: Ceftriaxone Sodium 1 gm/ (Dextrose) 50 mls @ 100 mls/hr IVPB DAILY [facility]; Protocol Last Admin: 03/16/20 09:21 Dose: 100 mls/hr Documented by: Labetalol HCl (Normodyne -) 200 mg PO BID [facility] Last Admin: 03/16/20 09:21 Dose: 200 mg Documented by: Pantoprazole Sodium (Protonix -) 40 mg PO DAILY [facility] Last Admin: 03/16/20 09:21 Dose: 40 mg Documented by: - Objective Vital Signs: Vital Signs Temperature 98.8 F 03/16/20 05:34 Pulse Rate 65 03/16/20 05:34 Respiratory Rate 18 03/16/20 05:34 Blood Pressure 140/76 03/16/20 05:34 O2 Sat by Pulse Oximetry (%) 96 03/16/20 05:34 Neck: Yes: Supple Cardiovascular: Yes: Regular Rate and Rhythm, S1, S2 Respiratory: Yes: CTA Bilaterally Gastrointestinal: Yes: Normal Bowel Sounds, Soft. No: Tenderness Edema: No Additional Findings/Remarks: - Review of Systems Constitutional: denies: Chills, Fever Cardiovascular: denies: Chest Pain, Shortness of Breath. denies: Palpitations Respiratory: denies: Cough, Hemoptysis, Orthopnea, PND Gastrointestinal: denies: Abdominal Pain, Constipation, Diarrhea, Melena, Nausea , Rectal Bleeding, Vomiting Genitourinary: denies: Dysuria, Hematuria Musculoskeletal: denies: Back Pain, Joint Pain Neurological: denies: Dizziness, Headache, Seizure, Syncope Labs: CBC, BMP 03/16/20 06:50 03/16/20 06:50 INR, PTT INR 1.00 (0.83-1.09) 03/14/20 11:00 Problem List - Problems (1) Hypertensive heart disease Code(s): I11.9 - HYPERTENSIVE HEART DISEASE WITHOUT HEART FAILURE Qualifiers: Heart failure presence: without heart failure Qualified Code(s): I11.9 - Hypertensive heart disease without heart failure (2) Chest pain Code(s): R07.9 - CHEST PAIN, UNSPECIFIED Qualifiers: Chest pain type: other chest pain Qualified Code(s): R07.89 - Other chest p ain; R07.8 - Other chest pain (3) Dyspnea on exertion Code(s): R06.00 - DYSPNEA, UNSPECIFIED Assessment/Plan 1. Hypertensive heart disease 2. Atypical chest pain 3. Chronic DE 4. Right hand weakness r/o CVA vs peripheral neuropathy 5. UTI PLAN: 1. Continue Labetolol 200 mg BID, ASA 81 mg QD and Vasotec 5 mg QD with uptitration as tolerated 2. Further testing including TTE and stress testing may be performed as outpatient Further plans are to follow Bg Stoddard MD
[2020-03-16] MEDS ORDERED: DOCUSATE SODIUM 100 MG CAPSULE (FP) PO ONE (13:19)
--- NOTE | 2020-03-16 13:43 | PN ---
Teaching Attending Note Name of Resident: Asif Benítez ATTENDING PHYSICIAN STATEMENT I saw and evaluated the patient. I reviewed the resident's note and discussed the case with the resident. I agree with the resident's findings and plan as documented. SUBJECTIVE: Originally came in with atypical chest pain and noted to have RUE cramping today. No fevers or chills. Patient previously had dysuria with is now improved OBJECTIVE: Vital Signs Temperature 97.5 F L 03/16/20 09:00 Pulse Rate 65 03/16/20 09:00 Respiratory Rate 18 03/16/20 09:00 Blood Pressure 143/76 03/16/20 09:00 O2 Sat by Pulse Oximetry (%) 98 03/16/20 09:00 PE: Gen: NAd, awake, alert HEENT: Nc/At, MOO, EOMI, MMM LUNG: CTA b/l without wheezes or rales CARD: RRR no murmurs ABD: soft, Nt/Nd, no suprapubic tenderness, no guarding, + BS Neuro: No focal deficits. Upper extremity strength 5/5 b/l and lower extremity strength 5/5 b/l EXT: No edema CBC, BMP 03/16/20 06:50 03/16/20 06:50 Active Medications Acetaminophen (Tylenol -) 650 mg PO Q4H PRN PRN Reason: PAIN LEVEL 1-5 Aspirin (Ecotrin -) 81 mg PO DAILY [facility] Last Admin: 03/16/20 09:21 Dose: 81 mg Documented by: Enalapril Maleate (Vasotec -) 5 mg PO DAILY [facility] Last Admin: 03/16/20 09:21 Dose: 5 mg Documented by: Gabapentin (Neurontin -) 100 mg PO DAILY [facility] Last Admin: 03/16/20 09:21 Dose: 100 mg Documented by: Heparin Sodium (Porcine) (Heparin -) 5,000 unit SQ BID [facility] Last Admin: 03/16/20 09:21 Dose: 5,000 unit Documented by: Ceftriaxone Sodium 1 gm/ (Dextrose) 50 mls @ 100 mls/hr IVPB DAILY [facility]; Protocol Last Admin: 03/16/20 09:21 Dose: 100 mls/hr Documented by: Labetalol HCl (Normodyne -) 200 mg PO BID [facility] Last Admin: 03/16/20 09:21 Dose: 200 mg Documented by: Pantoprazole Sodium (Protonix -) 40 mg PO DAILY [facility] Last Admin: 03/16/20 09:21 Dose: 40 mg Documented by: Microbiology 03/14/20 11:40 Urine - Urine Clean Catch Urine Culture - Final Escherichia Coli (Fluoroquinolone resistant) ASSESSMENT AND PLAN: Atypical chest pain Right Upper Extremity Cramping Uncomplicated Cystitis History of HTN C4-C7 degenerative disc disease --Asymptomatic currently with negative troponins --Cardiology to be followed on outpatient basis --ASA 81mg qdaily to continue --C4-7 DDD to be followed on outpatient basis; no fracture noted --May need outpatient MRI if RUE pain continues for assessment of disc disease --Can be given Gabapentin 100mg qdaily and titrated up on outpatient basis --Continue home Labetalol 200mg BID --Continue home Enalapril 5mg qdaily --Switch to Augmentin 875mg BID for total 5 days for acute cystitis --Patient can be discharged home with follow-up on above issues Dispo: D/C home DO Chirag Stafford
[2020-03-16 15:21] VITALS: BP 136/84; PULSE 59; TEMP 97.6
--- NOTE | 2020-03-16 17:01 | DS ---
Physical Exam: SUBJECTIVE: Patient seen and examined at bedside today. As per nursing, no acute events overnight. She reports right upper extremity cramping, and Right lower extremity cramping. Denies any chest pain, palpitations, shortness of breath, fevers, chills, abdominal pain, nausea, vomiting, dysuria, hematuria. OBJECTIVE: Vital Signs Period Temp Pulse Resp BP Sys/Bruno Pulse Ox Last 24 Hr 97.2 F-98.8 F 59-65 18-20 134-149/76-84 95-98 PHYSICAL EXAM GENERAL: The patient is awake, alert, and fully oriented, in no acute distress. HEAD: Normocephalic, atraumatic. EYES: PERRL, extraocular movements intact, sclera anicteric, conjunctiva clear. ENT: Oropharynx clear, without erythema or exudates. Moist mucous membranes. NECK: Trachea midline, full range of motion. Supple without lymphadenopathy. LUNGS: Breath sounds equal, clear to auscultation bilaterally. No wheezes, no crackles. No accessory muscle use. HEART: Regular rate and rhythm. S1, S2 without murmur, rub or gallop. ABDOMEN: Soft, nondistended, nontender to light and deep palpation x4 quadrants. No rebound tenderness, no guarding. Normoactive bowel sounds x4 quadrants. No hepatosplenomegaly, no masses appreciated. EXTREMITIES: 2+ radial, dorsalis pedis pulses bilaterally. Warm, well-perfused. No lower extremity edema bilaterally. NEUROLOGICAL: Cranial nerves II through XII grossly intact. Normal speech. 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 Lower extremities strength 5/5 bilaterally. PSYCH: Normal mood, normal affect upon my encounter. SKIN: Warm, dry. LABS Laboratory Results - last 24 hr 03/16/20 03/16/20 06:50 06:50 WBC 5.0 RBC 4.17 Hgb 12.3 Hct 37.8 MCV 90.6 MCH 29.5 MCHC 32.6 RDW 14.7 Plt Count 145 MPV 10.3 Sodium 140 Potassium 4.1 Chloride 109 H Carbon Dioxide 26 Anion Gap 6 L BUN 14.3 Creatinine 0.8 Est GFR (CKD-EPI)AfAm 86.57 Est GFR (CKD-EPI)NonAf 74.70 Random Glucose 84 Calcium 9.1 HOSPITAL COURSE: Date of Admission:03/14/20 70 y F with a PMH of HTN and obesity presents with RUE cramping, weakness and chest pain. You were evaluated with EKG and troponin. EKG reveals normal sinus rhythm at 64BPM, with left ventricular hypertrophy. Troponin negative X3. Cardiology was consulted and recommended further testing as outpatient. UA r eveals bacteruria, positive nitrites. You were treated with 3 days of Ceftriaxone and prescribed augmentin 875mg two times daily for [address]: No gross evidence of a focal intracranial lesion or hemorrhage is seen. C- spine CT: multilevel DDD of C4-C7. Patient is discharged with 2 days of Augmentin. Patient should Follow up with your Primary care physician, Cardiology (Gokul Jacob), and neurology (Cynthia Morfin) within 1 week. Patient is instructed to continue her home medical regimen. Date of Discharge: 03/16/20 Minutes to complete discharge: 36 Discharge Summary Problems reviewed: Yes Reason For Visit: URINARY TRACT INFECTION;CHEST PAIN Current Active Problems Cervical radicular pain (Acute) Chest pain (Acute) Dyspnea on exertion (Acute) Hypertensive heart disease (Acute) UTI (urinary tract infection) (Acute) Condition: Stable - Instructions Diet, Activity, Other Instructions: You were seen on [facility] on 03/14/20 for chest pain, right arm pain/cramping and weakness. Your lab test showed that you had a UTI. You were treated with antibiotics. Your blood works also shows that you have high cholesterol. - Please continue to follow a low cholesterol diet. - Please take aspirin 81 mg by mouth daily - Please take Neurontin 100mg by mouth daily - Continue taking Labetalol 200mg two times daily by mouth - Please take Enalapril 5 mg daily by mouth - Please take augmentin 875mg two times daily for2 more days - Please take protonix 40 mg Daily by mouth - Follow up with your Primary care physician, regarding your overall health care. - Follow up with Cardiology (Gokul Jacob) for outpatient evaluation with Echocardiography and Stress testing to evaluate for your heart functions. - Follow up with neurology (Cynthia Morfin) for your right upper extremity and Right lower extremity cramps outpatient. Please seek immediate medical attention or come to ER if you experience any of the following: - Worsening chest pain - SOB - Dizziness, nausea, vomiting - or any other changes from your normal daily functions Referrals: [facility] [Provider Group] Gokul Troncoso MD [Staff Physician] - Cynthia Ponce MD [Staff Physician] - Disposition: HOME - Home Medications Comprehensive Discharge Medication List: Ambulatory Orders Labetalol HCl [Normodyne -] 200 mg PO ASDIR 03/14/20 Amoxicillin/Potassium Clav [Augmentin 875-125 Tablet] 1 each PO BID #4 tablet 03/16/20 Aspirin Coated [Ecotrin -] 81 mg PO DAILY #30 tablet.ec 03/16/20 Enalapril Maleate [Vasotec -] 5 mg PO DAILY #30 tablet 03/16/20 Gabapentin [Neurontin -] 100 mg PO DAILY #30 capsule 03/16/20 Pantoprazole Sodium [Protonix -] 40 mg PO DAILY #30 tablet.ec 03/16/20 This patient is new to me today: Yes Date on this admission: 03/22/20 Emergency Visit: Yes ED Registration Date: 03/14/20 Care time: The patient presented to the Emergency Department on the above date and was hospitalized for further evaluation of their emergent condition. Critical Care patient: No - Discharge Referral Referred to [facility] No Physician Referral: Guevara Kolb MD ([facility]) ATTENDING PHYSICIAN STATEMENT I saw and evaluated the patient. I reviewed the resident's note and discussed the case with the resident. I agree with the resident's findings and plan as documented. SUBJECTIVE: OBJECTIVE: ASSESSMENT AND PLAN:
[2020-03-16] MEDS ORDERED: AMOX TR/POT CLAV 875MG/125MG TABLETS (FP) PO SCH (17:30)
--- NOTE | 2020-03-16 21:54 | EKG ---
Test Reason : Blood Pressure : / mmHG Vent. Rate : 064 BPM Atrial Rate : 064 BPM P-R Int : 164 ms QRS Dur : 106 ms QT Int : 442 ms P-R-T Axes : 054 -54 -29 degrees QTc Int : 455 ms NORMAL SINUS RHYTHM POOR R WAVE PROGRESSION LEFT AXIS DEVIATION LEFT ANTERIOR FASCICULAR BLOCK VOLTAGE CRITERIA FOR LEFT VENTRICULAR HYPERTROPHY ABNORMAL ECG NO PREVIOUS ECGS AVAILABLE Confirmed by REKHA JACOBS MD ([id number]) on 03/16/2020 9:54:14 PM Referred By: Confirmed By:REKHA JACOBS MD
== END 2020-03-16 17:42 | disposition home or self-care (01) | DRG 690 ==
LOC: JER 10:00 → JERBED 12:49 → OBSVTOIN 14:44 → J4W 16:38
PROVIDERS: ADMIT Internal Medicine; ATTEND Internal Medicine
DX: N39.0 Urinary tract infection, site not specified (principal); R07.89 Other chest pain; I11.9 Hypertensive heart disease without heart failure; I25.10 Atherosclerotic heart disease of native coronary artery without angina pectoris; E66.9 Obesity, unspecified; Z68.33 Body mass index [BMI] 33.0-33.9, adult; M54.12 Radiculopathy, cervical region; I51.7 Cardiomegaly; M47.892 Other spondylosis, cervical region; Z91.14 Patient's other noncompliance with medication regimen
CPT/HCPCS: 36415; 70450-TC; 71045-TC-FY; 72125-TC; 80048; 80053; 80061; 81003; 82550; 82553; 82607; 83036; 83690; 83721; 83735; 83880; 84100; 84443; 84484; 85025; 85027; 85610; 85730; 87086; 87186; 93005; 93010; 99285-25; G0378; J1644; U0003